=== PATIENT | female | born 1960 | race Caucasian/White ===

== ENCOUNTER 2019-07-16 12:18 | Emergency (ER) | payer MEDICAID, SELFPAY ==
[2019-07-16 12:20] VITALS: BP 116/91; PULSE 87; RESP 16; TEMP 36.6; O2SAT 98; BMI 23.1
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
[2019-07-16 12:44] LABS: Absolute Lymphocyte Count 2.24 X10^3/uL (0.83-4.51); Absolute Neutrophil Count 7.1 X10^3/uL (2.0-7.7); Basophil# 0.06 X10^3/uL; Basophil% 0.6 % (0-1); Eosinophil# 0.04 X10^3/uL; Eosinophils% 0.4 % (0-5); Hematocrit 38.7 % (37-47); Hemoglobin 13.1 g/dL (12.0-15.0); Lymphocyte # 2.24 X10^3/ul (4.0); Lymphocyte % 22.5 % (19-41); Mean Corp Hgb Conc 33.9 g/dL (32-36); Mean Corpuscular Hgb 30.1 pg (27.0-32.0); Mean Platelet Vol. 9.9 fl (6.2-12.0); Monocyte# 0.47 X10^3/uL; Monocyte% 4.7 % (0-10); NRBC Flagged by Analyzer 0 % (0-5); Neutrophil # 7.14 X10^3/uL (2.7-7.7); Neutrophil % 71.6 % (47-70); Platelet Count 378 K/mm3 (150-450); RBC Distribution Width CV 13.4 % (11.6-14.6); RBC Distribution Width SD 43.7 fl (35.1-43.9); Red Blood Count 4.35 M/mm3 (4.2-5.4)
[2019-07-16] MEDS: Midazolam 2 MG/2 ML Syringe IM (12:59)
[2019-07-16] MEDS: Ziprasidone IM 20 MG/ML VIAL IM (12:59)
[2019-07-16 13:05] VITALS: BP 117/81; PULSE 80; RESP 14; O2SAT 99
--- NOTE | 2019-07-16 13:05 | ED.RN ---
PT IS NO LONGER COMBATIVE. PT IS RESTING IN BED WITH EYES CLOSED. RESTRAINTS REMOVED. VITAL SIGNS STABLE.
[2019-07-16 13:10] LABS: Anion Gap 10 (5-15); BUN 10 mg/dL (7-18); BUN/Creat Ratio 13.1 RATIO (10-20); Calcium,Total 9.6 mg/dL (8.5-10.1); Chloride 108 mmol/L (98-107); Creatinine, Serum 0.76 mg/dL (0.55-1.02); EST Glomerular Filtration Rate 82 mL/min (>60); Est Glom Filt Rate - Afr Amer 99 mL/min (>60); Estimated Creatinine Clearance 72.77 ml/min; Glucose 96 mg/dL (74-106); Potassium 4.1 mmol/L (3.5-5.1); Sodium Level 140 mmol/L (136-145)
[2019-07-16 14:44] VITALS: BP 96/58; PULSE 78; RESP 16; O2SAT 98
--- NOTE | 2019-07-16 15:00 | ED.RN ---
PT WAS ASSISTED TO RESTROOM BY THIS RN. PT WAS THEN ASSISTED BACK TO BED AND ASKED FOR FOOD. MEAL TRAY WAS ORDERED AND GIVEN TO PT. PT HAS BEEN CALM AND COOPERATIVE.
[2019-07-16 15:02] LABS: Bacteria 0 SEEN /hpf (None Seen); Mucous, Urine 0 SEEN /hpf (<or=2+); Red Blood Cells-Urine 0 SEEN /hpf (0-5); White Blood Cells 0 SEEN /hpf (0-5)
[2019-07-16 15:21] LABS: Color, Urine Yellow (Yellow); Glucose, Dipstick Normal (Normal); Nitrite-Dipstick Negative (Negative); Occult Blood-Urine Negative /ul (Negative); Urine Bilirubin Dipstick Negative (Negative); Urine Clarity Clear (Clear); Urine Urobilinogen Normal (Normal)
[2019-07-16 15:25] LABS: Ketone-Dipstick 15 mg/dl (Negative); Leukocyte Esterase-Dipstick Negative /ul (Negative); Protein-Dipstick Negative (Negative)
[2019-07-16 15:29] LABS: Amphetamine Urine VISTA NEGATIVE (<1000 ng/mL); Barbiturate Urine VISTA NEGATIVE (< 200 ng/mL); Benzodiazepine Urine VISTA POSITIVE (< 200 ng/mL); Cocaine Urine VISTA NEGATIVE (< 300 ng/mL); Ecstacy Urine VISTA NEGATIVE (< 500 ng/mL); Methadone Urine VISTA NEGATIVE (< 300 ng/mL); PCP Urine VISTA NEGATIVE (< 25 ng/mL); THC Urine VISTA NEGATIVE (< 50 ng/mL); Vista UDS pH Range 7
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
[2019-07-16 15:54] LABS: Squamous Epithelial Cells - UA 0-5 SEEN /hpf (5-10)
[2019-07-16 17:32] VITALS: BP 93/62; PULSE 78; RESP 18; O2SAT 97
--- NOTE | 2019-07-16 19:40 | CM.ED ---
Social Work Telephone call from [facility], patient accepted. Accepting information provided to nursing staff and medical team. [place] [facility] faxed. Updated patient on plan. PLAN: Discharge to [facility]. Nelson RUSH, LEE
--- NOTE | 2019-07-16 19:50 | CM.ED ---
Social Work Telephone call to Don, patient legal guardian to communicate patient discharge dispo, Kings agreeable to plan. Nelson Onofre DRYCLEANER, ORNAMENTAL IRONWORKING SUPERVISOR
[2019-07-16 20:11] VITALS: BP 111/78; PULSE 89; RESP 17; TEMP 36.4; O2SAT 94
[2019-07-16 20:13] VITALS: BP 111/78; PULSE 89; RESP 17; TEMP 36.4; O2SAT 94
--- NOTE | 2019-07-17 10:07 | CM.ED ---
Social Work Telephone call to Timmy Kramer, communicated patient discharge dispo. Nelson Onofre MANAGER CLEANING, LEE
== END 2019-07-16 20:14 ==
PROVIDERS: Emergency Provider Emergency Medicine; Family Provider Nurse Practitioner Adult Health; PCP Nurse Practitioner Adult Health
DX: F20.0 Paranoid schizophrenia (principal)
CPT/HCPCS: 80048; 80307; 80320; 81001; 85025; 96372; 99285; G0480; J3486

== ENCOUNTER 2019-08-13 11:43 | Emergency (ER) | payer MEDICAID, SELFPAY ==
[2019-08-13] VITALS (7 sets, daily range): BP systolic 106–149; BP diastolic 61–83; PULSE 94–96; RESP 16–18; TEMP 35.5; O2SAT 97–98; BMI 26.6
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
--- NOTE | 2019-08-13 12:55 | EKG12_ITS ---
Test Reason : MENTAL HEALTH Blood Pressure : / mmHG Vent. Rate : 090 BPM Atrial Rate : 090 BPM P-R Int : 150 ms QRS Dur : 094 ms QT Int : 380 ms P-R-T Axes : 059 022 041 degrees QTc Int : 464 ms Normal sinus rhythm Incomplete right bundle branch block Borderline ECG Confirmed by AIDE CULVER, MAYUR ([id number]), features editor SATHYA RAIN ([id number]) on 08/15/2019 1:36:04 PM Referred By: ALEX Confirmed By:MAYUR NOBLE MD
--- NOTE | 2019-08-13 13:00 | RAD_ITS ---
STUDY: X-RAY CHEST REASON FOR EXAM: Female, 59 years old. Hallucinations TECHNIQUE: Single AP portable view of the chest. COMPARISON: None. FINDINGS: There is hyperinflation of the lungs consistent with chronic obstructive lung disease (COPD). Lungs are clear. There is no demonstrated pleural abnormality. Normal size heart. Normal mediastinum and edward. Normal visualized pulmonary arteries. Normal visualized aortic arch and descending thoracic aorta. Normal visualized thoracic spine. Normal visualized ribs, clavicles, and shoulders. There is no demonstrated abnormality of the visualized soft tissue structures of the upper abdomen. RAD/Chest 1 View (Portable) IMPRESSION: No acute cardiopulmonary disease Electronically Signed: Estuardo Jefferson DO at 13:30 EDT Tel , Service support ,
[2019-08-13 13:17] LABS: Amphetamine Urine VISTA NEGATIVE (<1000 ng/mL); Barbiturate Urine VISTA NEGATIVE (< 200 ng/mL); Benzodiazepine Urine VISTA NEGATIVE (< 200 ng/mL); Cocaine Urine VISTA NEGATIVE (< 300 ng/mL); Ecstacy Urine VISTA NEGATIVE (< 500 ng/mL); Methadone Urine VISTA NEGATIVE (< 300 ng/mL); PCP Urine VISTA NEGATIVE (< 25 ng/mL); THC Urine VISTA NEGATIVE (< 50 ng/mL); Vista UDS pH Range 6
[2019-08-13 13:23] LABS: Mucous, Urine 0 SEEN /hpf (<or=2+); Red Blood Cells-Urine 0 SEEN /hpf (0-5)
[2019-08-13 13:25] LABS: Color, Urine Yellow (Yellow); Glucose, Dipstick Normal (Normal); Ketone-Dipstick Negative (Negative); Leukocyte Esterase-Dipstick 25 /ul (Negative); Nitrite-Dipstick Negative (Negative); Occult Blood-Urine Negative /ul (Negative); Protein-Dipstick Negative (Negative); Specific Gravity, Urine 1.015 (1.002-1.030); Urine Bilirubin Dipstick Negative (Negative); Urine Clarity Clear (Clear); Urine Urobilinogen Normal (Normal)
[2019-08-13 13:26] LABS: Absolute Lymphocyte Count 1.85 X10^3/uL (0.83-4.51); Absolute Neutrophil Count 4.5 X10^3/uL (2.0-7.7); Basophil# 0.05 X10^3/uL; Basophil% 0.7 % (0-1); Eosinophil# 0.08 X10^3/uL; Eosinophils% 1.1 % (0-5); Hematocrit 32.9 % (37-47); Hemoglobin 11.1 g/dL (12.0-15.0); Lymphocyte # 1.85 X10^3/ul (4.0); Lymphocyte % 26.4 % (19-41); Mean Corp Hgb Conc 33.7 g/dL (32-36); Mean Corpuscular Hgb 30.7 pg (27.0-32.0); Mean Corpuscular Volume 90.9 fL (81-99); Mean Platelet Vol. 8.6 fl (6.2-12.0); Monocyte# 0.48 X10^3/uL; Monocyte% 6.8 % (0-10); NRBC Flagged by Analyzer 0 % (0-5); Neutrophil # 4.53 X10^3/uL (2.7-7.7); Neutrophil % 64.7 % (47-70); Platelet Count 362 K/mm3 (150-450); RBC Distribution Width CV 14.6 % (11.6-14.6); RBC Distribution Width SD 48.5 fl (35.1-43.9); Red Blood Count 3.62 M/mm3 (4.2-5.4)
[2019-08-13] MEDS: Acetaminophen 500 MG Tablet 1000 MG PO (13:26)
[2019-08-13 13:30] LABS: Squamous Epithelial Cells - UA 5-10 SEEN /hpf (5-10); White Blood Cells 0-5 SEEN /hpf (0-5)
[2019-08-13 13:31] LABS: Bacteria RARE /hpf (None Seen)
[2019-08-13 13:38] LABS: Internal QC Validated? YES +Cl - CLEAR BKGD; Pregnancy, Serum, hCG Quali. NEGATIVE Negative
[2019-08-13 13:51] LABS: AST(SGOT) 25 U/L (15-37); Alanine Aminotransfer ALT/SGPT 44 U/L (13-56); Albumin, Serum 3.9 g/dL (3.2-5.0); Alkaline Phosphatase 100 U/L (45-117); Anion Gap 8 (5-15); BUN 17 mg/dL (7-18); BUN/Creat Ratio 21.2 RATIO (10-20); Calcium,Total 9.3 mg/dL (8.5-10.1); Chloride 101 mmol/L (98-107); EST Glomerular Filtration Rate 77 mL/min (>60); Est Glom Filt Rate - Afr Amer 94 mL/min (>60); Estimated Creatinine Clearance 66.45 ml/min; Glucose 106 mg/dL (74-106); Protein, Total 7.9 g/dL (6.4-8.2); Sodium Level 134 mmol/L (136-145); Thyroid Stim Hormone (TSH) 8.28 uIU/mL (0.358-3.74)
[2019-08-13 14:01] LABS: Alcohol, Blood (Medical)-Serum < 3.0 mg/dL
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
--- NOTE | 2019-08-13 17:10 | ED.RN ---
NURSE TO NURSE REPORT CALLED TO [facility] TO [facility] IN PT INTAKE DEPARTMENT. INFORMED THAT ETA FOR TRANSPORT IS 1800.
--- NOTE | 2019-08-13 17:58 | ED.RN ---
PT INCONTINENT OF URINE. LINENS, GOWN CHANGED, PT CLEANED WITH BATH WIPES AND DEPEND PUT ON PT. DINNER TRAY ORDERED FOR PT, PT AWAITING TRANSPORT TO [facility].
== END 2019-08-13 18:25 ==
PROVIDERS: Emergency Provider Emergency Medicine; Family Provider Nurse Practitioner Adult Health; PCP Nurse Practitioner Adult Health
DX: F20.0 Paranoid schizophrenia (principal); R94.6 Abnormal results of thyroid function studies; I10 Essential (primary) hypertension; E78.00 Pure hypercholesterolemia, unspecified; E03.9 Hypothyroidism, unspecified; Z79.899 Other long term (current) drug therapy; Z72.0 Tobacco use
CPT/HCPCS: 71045; 80053; 80307; 80320; 81001; 84443; 84703; 85025; 93005; 99285; G0480; J3486

== ENCOUNTER 2019-08-26 18:44 | Emergency (ER) | payer MEDICAID, SELFPAY ==
[2019-08-13 11:44] VITALS: BMI 26.6
[2019-08-26] VITALS (7 sets, daily range): BP systolic 118–143; BP diastolic 84–99; PULSE 86–97; RESP 16–19; TEMP 36.1; O2SAT 96–100; BMI 23.8
--- NOTE | 2019-08-26 18:51 | EKG12_ITS ---
Test Reason : Blood Pressure : / mmHG Vent. Rate : 107 BPM Atrial Rate : 107 BPM P-R Int : 134 ms QRS Dur : 082 ms QT Int : 346 ms P-R-T Axes : 049 007 046 degrees QTc Int : 461 ms Sinus tachycardia Otherwise normal ECG Confirmed by CELIO CULVER, IWONA ([id number]), writer editor JORGE STARK ([id number]) on 08/31/2019 10:22:20 AM Referred By: GRAY Confirmed By:IWONA PICKENS MD
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
[2019-08-26 19:41] LABS: Absolute Neutrophil Count 4.2 X10^3/uL (2.0-7.7); Basophil# 0.04 X10^3/uL; Basophil% 0.6 % (0-1); Eosinophil# 0.04 X10^3/uL; Eosinophils% 0.6 % (0-5); Hematocrit 35.6 % (37-47); Hemoglobin 11.9 g/dL (12.0-15.0); Lymphocyte % 30.7 % (19-41); Mean Corp Hgb Conc 33.4 g/dL (32-36); Mean Corpuscular Hgb 30.7 pg (27.0-32.0); Mean Platelet Vol. 9.6 fl (6.2-12.0); Monocyte# 0.48 X10^3/uL; Neutrophil # 4.15 X10^3/uL (2.7-7.7); Neutrophil % 60.8 % (47-70); Platelet Count 338 K/mm3 (150-450); RBC Distribution Width CV 14.6 % (11.6-14.6); RBC Distribution Width SD 49.5 fl (35.1-43.9); Red Blood Count 3.87 M/mm3 (4.2-5.4); White Blood Count 6.8 K/mm3 (4.4-11.0)
[2019-08-26 19:42] LABS: NRBC Flagged by Analyzer 0 % (0-5)
[2019-08-26 19:46] LABS: Internal QC Validated? YES +Cl - CLEAR BKGD
[2019-08-26 19:51] LABS: Pregnancy, Serum, hCG Quali. NEGATIVE Negative
[2019-08-26 19:55] LABS: Anion Gap 8 (5-15); BUN 15 mg/dL (7-18); Calcium,Total 9.2 mg/dL (8.5-10.1); Chloride 106 mmol/L (98-107); Creatinine, Serum 0.79 mg/dL (0.55-1.02); EST Glomerular Filtration Rate 79 mL/min (>60); Est Glom Filt Rate - Afr Amer 95 mL/min (>60); Estimated Creatinine Clearance 67.29 ml/min; Glucose 112 mg/dL (74-106); Potassium 3.9 mmol/L (3.5-5.1); Sodium Level 140 mmol/L (136-145)
--- NOTE | 2019-08-26 21:50 | ED.RN ---
PT BROTHER CALLED, HE SPOKE WITH THE PT PSYCHIATRIST. THEY ARE REQUESTING SHE GO TO [facility]. [facility]RENT[facility] A BED. THIS NURSE INFORMED THE BROTHER WE WILL NOTIFY THE [facility] OF THE SAME WHEN THEY SEE THE PATIENT
--- NOTE | 2019-08-26 22:30 | ED.RN ---
DILMA MCCALLUM NURSE CALLED TO CHECK STATUS OF THIS PT, ADVISED THEM THAT THIS PT IS WAITING TO BE SEEN BY [facility]
[2019-08-26 22:36] LABS: Color, Urine Yellow (Yellow); Glucose, Dipstick Normal (Normal); Ketone-Dipstick 5 mg/dl (Negative); Leukocyte Esterase-Dipstick 25 /ul (Negative); Nitrite-Dipstick Negative (Negative); Occult Blood-Urine 25 /ul (Negative); Protein-Dipstick Negative (Negative); Specific Gravity, Urine 1.015 (1.002-1.030); Urine Bilirubin Dipstick Negative (Negative); Urine Clarity Sl. Cloudy (Clear); Urine Urobilinogen Normal (Normal); Urine pH 6.5 (5.0 - 8.0)
[2019-08-26 22:38] LABS: Mucous, Urine RARE /hpf (<or=2+); Red Blood Cells-Urine 0-5 SEEN /hpf (0-5); Squamous Epithelial Cells - UA 5-10 SEEN /hpf (5-10); White Blood Cells 0-5 SEEN /hpf (0-5)
[2019-08-26 22:39] LABS: Amphetamine Urine VISTA NEGATIVE (<1000 ng/mL); Bacteria RARE /hpf (None Seen); Barbiturate Urine VISTA NEGATIVE (< 200 ng/mL); Benzodiazepine Urine VISTA NEGATIVE (< 200 ng/mL); Cocaine Urine VISTA NEGATIVE (< 300 ng/mL); Ecstacy Urine VISTA NEGATIVE (< 500 ng/mL); Methadone Urine VISTA NEGATIVE (< 300 ng/mL); PCP Urine VISTA NEGATIVE (< 25 ng/mL); THC Urine VISTA NEGATIVE (< 50 ng/mL); Vista UDS pH Range 6
[2019-08-27] VITALS (8 sets, daily range): BP systolic 107; BP diastolic 62; PULSE 71; RESP 16–18; O2SAT 98
--- NOTE | 2019-08-27 00:23 | ED.RN ---
PATIENT REMOVED DIAPER AND PEED IN BED.
--- NOTE | 2019-08-27 01:34 | ED.RN ---
AMERICA FROM [facility] IS ON HIS WAY TO SEE THIS PT
--- NOTE | 2019-08-27 01:38 | ED.RN ---
[facility] ON SITE
--- NOTE | 2019-08-27 02:09 | ED.RN ---
PER VALERIE FROM [facility], HE IS UNABLE TO EVALUATE THIS PT AT THIS TIME, HE PLANS TO EVALUATE HER IN THE AM WHEN SHE IS MORE ALERT.
--- NOTE | 2019-08-27 06:45 | ED.RN ---
CALLED [facility]; ASKED TO GIVE US A CALL TO GET NUMBER TO FAX PINK SLIP TO ACCEPTING FACILITY
--- NOTE | 2019-08-27 07:22 | ED.RN ---
FAXED PINK SLIP TO [facility]
--- NOTE | 2019-08-27 08:15 | ED.RN ---
CALLED [facility] TO TOUCH BASE AND MAKE SURE THAT THEY HAD RECEIVED THE PINK SLIP. SPOKE WITH CHARLIE WHOM STATED THAT THE PINK SLIP WAS NULL AND VOID YESTERDAY AFTER THEY HAD SPOKE WITH PTS GUARDIAN, THAT THE PATIENT HAD BEEN ACCEPTED BY THE FACILITY YESTERDAY. WE NOW NEED TO WAIT ON A CALL FROM THEM BECAUSE SHE IS NOT SURE THAT THEY HAVE THE CORRECT STAFFING AT THIS TIME. SHE WILL CALL BACK WHEN THE PATIENT IS ABLE TO BE TRANSFERED. PT IS ACCEPTED TO FACILITY
[2019-08-27] MEDS: Ziprasidone IM 20 MG/ML VIAL IM (09:00)
== END 2019-08-27 13:02 ==
PROVIDERS: Emergency Provider Emergency Medicine; Family Provider Nurse Practitioner Adult Health; PCP Nurse Practitioner Adult Health
DX: R45.851 Suicidal ideations (principal); F25.9 Schizoaffective disorder, unspecified
CPT/HCPCS: 80048; 80307; 80320; 81001; 84703; 85025; 93005; 96372; 99285; J7030; G0480; J3486

== ENCOUNTER 2024-11-14 09:16 | Emergency (ER) | payer MEDICARE, MEDICAID, SELFPAY ==
[2024-11-14 09:17] VITALS: BP 134/89; PULSE 100; RESP 20; TEMP 36.4; O2SAT 96; BMI 24.1
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
[2024-11-14 10:03] LABS: Absolute Lymphocyte Count 1.16 X10^3/uL (0.83-4.51); Absolute Neutrophil Count 4.1 X10^3/uL (2.0-7.7); Basophil# 0.04 X10^3/uL; Basophil% 0.7 % (0-1); Eosinophil# 0.02 X10^3/uL; Eosinophils% 0.4 % (0-5); Hematocrit 39.5 % (37-47); Hemoglobin 13.4 g/dL (12.0-15.0); Lymphocyte # 1.16 X10^3/ul (0.83-4.51); Lymphocyte % 20.4 % (19-41); Mean Corp Hgb Conc 33.9 g/dL (32-36); Mean Corpuscular Hgb 29.8 pg (27.0-32.0); Mean Corpuscular Volume 87.8 fL (81-99); Mean Platelet Vol. 9.1 fl (6.2-12.0); Monocyte# 0.31 X10^3/uL; Monocyte% 5.4 % (0-10); NRBC Flagged by Analyzer 0 % (0-5); Neutrophil # 4.14 X10^3/uL (2.7-7.7); Neutrophil % 72.7 % (47-70); POSITIVE COUNT YES; RBC Distribution Width CV 13.7 % (11.6-14.6); White Blood Count 5.7 K/mm3 (4.4-11.0)
[2024-11-14] MEDS: Ziprasidone IM 20 MG/ML VIAL IM (10:10)
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
[2024-11-14 10:16] VITALS: BP 143/91; PULSE 88; RESP 17; O2SAT 95
[2024-11-14 10:29] LABS: Anion Gap 4 (5-15); BUN 16 mg/dL (7-18); BUN/Creat Ratio 22.6 RATIO (10-20); Calcium,Total 9.3 mg/dL (8.5-10.1); Chloride 111 mmol/L (98-107); Creatinine, Serum 0.71 mg/dL (0.55-1.02); EST Glomerular Filtration Rate 88 mL/min (>60); Est Glom Filt Rate - Afr Amer 106 mL/min (>60); Estimated Creatinine Clearance 64.76 ml/min; Glucose 112 mg/dL (74-106); Potassium 3.7 mmol/L (3.5-5.1); Sodium Level 141 mmol/L (136-145)
[2024-11-14 10:30] LABS: Mucous, Urine 0 SEEN /hpf (<or=2+); White Blood Cells 0 SEEN /hpf (0-5)
--- NOTE | 2024-11-14 10:35 | ED.RN ---
Patient slipped out of her wrist restraints. I undid her foot restraints. I explained to her that I would take the restraints off if she was good and didn't try to hit or kick any of the nurses. I asked prior to removal if she agreed to be good and she shook her head yes. I told her that the social media marketer was coming to talk to her and it was the only way she was going to be able to get out of here. She agreed and I told her the social workers name is Connie. Connie is now in the room with the patient.
[2024-11-14 10:37] LABS: Color, Urine Yellow (Yellow); Glucose, Dipstick Normal (Normal); Ketone-Dipstick 50 mg/dl (Negative); Leukocyte Esterase-Dipstick Negative /ul (Negative); Nitrite-Dipstick Negative (Negative); Occult Blood-Urine 10 /ul (Negative); Protein-Dipstick 15 mg/dl (Negative); Specific Gravity, Urine 1.015 (1.002-1.030); Urine Bilirubin Dipstick Negative (Negative); Urine Clarity Sl. Cloudy (Clear); Urine Urobilinogen Normal (Normal)
[2024-11-14 10:44] LABS: Alcohol, Blood (Medical)-Serum < 3.0 mg/dL
[2024-11-14 10:49] LABS: Amorphous Sediment 1+; Bacteria 1+ /hpf (None Seen); Squamous Epithelial Cells - UA 0-5 SEEN /hpf (5-10)
[2024-11-14 10:50] LABS: Red Blood Cells-Urine 0-5 SEEN /hpf (0-5)
[2024-11-14 11:07] LABS: Differential Indicated SCAN CRITERIA MET; Platelet Estimate ADEQUATE (ADEQ)
[2024-11-14 13:37] LABS: Amphetamine Urine VISTA NEGATIVE (<1000 ng/mL); Barbiturate Urine VISTA NEGATIVE (< 200 ng/mL); Benzodiazepine Urine VISTA NEGATIVE (< 200 ng/mL); Cocaine Urine VISTA NEGATIVE (< 300 ng/mL); Ecstacy Urine VISTA NEGATIVE (< 500 ng/mL); Methadone Urine VISTA NEGATIVE (< 300 ng/mL); PCP Urine VISTA NEGATIVE (< 25 ng/mL); THC Urine VISTA NEGATIVE (< 50 ng/mL); Vista UDS pH Range 6
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
--- NOTE | 2024-11-14 14:47 | CM.ED ---
Social Work SW contacted [facility] and confirmed that they had female beds available. Referral sent. Starr from [facility] called back to inquire about patient being in restraints, Strar informed that patient has been restraint free for several hours. [facility] stated they were able to accept patient, she would just need to be out of restraints for [address] aShu is the accepting physician, nurse to nurse number [phone] Options 3. Information given to community marketing coordinator. SW attempted to reach patients responsible green party. Message left for return call. Plan: Inpatient psychiatric admission [facility] Leila Adams, PAINTER APPRENTICE, STORM WINDOW INSTALLER
--- NOTE | 2024-11-14 14:54 | CM.ED ---
Social Work Patients responsible alliance party returned call and notified that patient was accepted at [facility], [facility]. No further questions or concerns. [facility] [place] to inform that patient had been accepted at [facility]. Connie Adams, OLDER WORKER SPECIALIST, TOOTH CUTTER
[2024-11-14 18:31] VITALS: BP 103/77; PULSE 88; RESP 16; TEMP 36.9; O2SAT 100
[2024-11-14 19:00] VITALS: BP 103/77; PULSE 88; RESP 16; O2SAT 100
== END 2024-11-14 21:36 ==
PROVIDERS: Emergency Provider Emergency Medicine; PCP Nurse Practitioner Adult Health; Visit Provider Emergency Medicine
DX: R45.6 Violent behavior (principal); F25.9 Schizoaffective disorder, unspecified; Z91.148 Patient's other noncompliance with medication regimen for other reason; Z79.899 Other long term (current) drug therapy
CPT/HCPCS: 80048; 80307; 81001; 82077; 85025; 96372; 99285; J3486

== ENCOUNTER 2024-11-29 13:34 | Emergency (ER) | payer MEDICARE, MEDICAID, SELFPAY ==
[2024-11-29 13:36] VITALS: BP 147/110; PULSE 89; RESP 16; TEMP 36.6; O2SAT 96; BMI 24.3
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
--- NOTE | 2024-11-29 13:50 | ED.RN ---
belongs - robbins on lanyard, silver cross necklace, leopard coat, purple coat, shoes, pants, shirt, bra, hat, gloves
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
[2024-11-29] MEDS: Ziprasidone IM 20 MG/ML VIAL IM (14:18)
[2024-11-29 14:27] LABS: Color, Urine Yellow (Yellow); Glucose, Dipstick Normal (Normal); Ketone-Dipstick Negative (Negative); Leukocyte Esterase-Dipstick Negative /ul (Negative); Nitrite-Dipstick Negative (Negative); Occult Blood-Urine Negative /ul (Negative); Protein-Dipstick 30 mg/dl (Negative); Specific Gravity, Urine 1.025 (1.002-1.030); Urine Bilirubin Dipstick Negative (Negative); Urine Clarity Clear (Clear); Urine Urobilinogen Normal (Normal)
[2024-11-29 14:28] LABS: Bacteria 0 SEEN /hpf (None Seen); Mucous, Urine 0 SEEN /hpf (<or=2+); Red Blood Cells-Urine 0 SEEN /hpf (0-5); White Blood Cells 0 SEEN /hpf (0-5)
[2024-11-29 14:34] VITALS: BP 134/99; PULSE 82; RESP 20; O2SAT 96
--- NOTE | 2024-11-29 14:34 | ED.RN ---
Left message with legal guardian to call back to ER for consent to treat.
[2024-11-29 14:40] LABS: Squamous Epithelial Cells - UA 0-5 SEEN /hpf (5-10)
[2024-11-29 14:48] LABS: Absolute Lymphocyte Count 2.54 X10^3/uL (0.83-4.51); Absolute Neutrophil Count 2.9 X10^3/uL (2.0-7.7); Basophil# 0.03 X10^3/uL; Basophil% 0.5 % (0-1); Eosinophil# 0.06 X10^3/uL; Hematocrit 36.4 % (37-47); Lymphocyte # 2.54 X10^3/ul (0.83-4.51); Lymphocyte % 42.6 % (19-41); Mean Corpuscular Hgb 29.2 pg (27.0-32.0); Mean Corpuscular Volume 88.6 fL (81-99); Mean Platelet Vol. 10.1 fl (6.2-12.0); Monocyte% 6.7 % (0-10); NRBC Flagged by Analyzer 0 % (0-5); Neutrophil # 2.92 X10^3/uL (2.7-7.7); Platelet Count 361 K/mm3 (150-450); RBC Distribution Width CV 13.6 % (11.6-14.6); RBC Distribution Width SD 44.2 fl (35.1-43.9); Red Blood Count 4.11 M/mm3 (4.2-5.4)
[2024-11-29 15:00] VITALS: BP 130/89; PULSE 82; RESP 16; O2SAT 96
[2024-11-29 15:04] LABS: Anion Gap 6 (5-15); BUN 19 mg/dL (7-18); BUN/Creat Ratio 27.3 RATIO (10-20); Calcium,Total 9.6 mg/dL (8.5-10.1); Chloride 105 mmol/L (98-107); EST Glomerular Filtration Rate 90 mL/min (>60); Est Glom Filt Rate - Afr Amer 108 mL/min (>60); Estimated Creatinine Clearance 64.76 ml/min; Glucose 88 mg/dL (74-106); Potassium 3.6 mmol/L (3.5-5.1); Sodium Level 139 mmol/L (136-145)
[2024-11-29 15:16] VITALS: BP 130/89; PULSE 82; RESP 16; O2SAT 96
--- NOTE | 2024-11-29 15:30 | RAD_ITS ---
INDICATION: pain EXAMINATION/TECHNIQUE: X-RAY - XR Pelvis 1 or 2 Views COMPARISON: None. FINDINGS: PELVIC BONES: Healing fractures of the right superior and inferior pubic rami. Note that overlapping bowel shadows may however obscure fine detail. Sacroiliac joints are unremarkable. No widening of the pubic symphysis. HIPS: Right hip prosthesis in place. No displaced fracture seen in this frontal view. SOFT TISSUES: No soft tissue swelling or gas. RAD/Pelvis 1 or 2 Views IMPRESSION: Healing fractures right superior and inferior pubic rami. Electronically Signed: Braulio Cruz MD at 16:00 EST ,
[2024-11-29 15:50] LABS: Amphetamine Urine NEGATIVE (<1000 ng/mL); Barbiturate Urine VISTA NEGATIVE (< 200 ng/mL); Benzodiazepine Urine VISTA NEGATIVE (< 200 ng/mL); Cocaine Urine VISTA NEGATIVE (< 300 ng/mL); Ecstacy Urine VISTA NEGATIVE (< 500 ng/mL); Methadone Urine VISTA NEGATIVE (< 300 ng/mL); PCP Urine VISTA NEGATIVE (< 25 ng/mL); THC Urine VISTA NEGATIVE (< 50 ng/mL); Vista UDS pH Range 5
[2024-11-29] MEDS: Lorazepam 2 MG/ML WCH Syringe IM (16:18)
[2024-11-29] MEDS: DiphenhydrAMINE 50 MG/ML Syringe IM (16:18)
[2024-11-29 18:05] VITALS: PULSE 82; RESP 14; O2SAT 96
[2024-11-29 19:28] VITALS: BP 100/62; PULSE 74; RESP 16; TEMP 36.6; O2SAT 98
--- NOTE | 2024-11-29 20:15 | ED.RN ---
Attempted to call [facility] for report, unable to reach at this time.
--- NOTE | 2024-11-29 20:23 | CM.ED ---
Social work Reason for referral: mental health Referral source: Vesta RN About 1315, this SW was advised about patient's pending arrival to [facility] ED after Vesta RN received a call from patient's placement, [facility]. Patient reportedly was being sent to [facility] ED with a pink slip and paperwork had reportedly been sent to [facility] already. This SW called [facility] ([phone]) and left a secure voicemail, requesting a return call, from Sherrell in [employer] at 1320. At 1345, this SW recalled [facility] and left a secure voicemail, requesting a return call from Payton, the local [place] truck driver. At 1415, this SW called [facility] again and spoke with Tracy at [facility] [employer] [facility]. Tracy stated patient had been placed at [facility] from 11/14/24 until 11/27/24 when patient returned to [facility] in a private Uber. Tracy stated patient was manic upon return and patient's packet of psychiatric information had already been sent to [facility]. Tracy was unsure if patient already had a mental health assessment done, but Tracy did fax patient's packet to this SW (printed and placed on patient's chart). At 1425, this SW called [facility] ( ) and spoke with Jaison who shared that [facility] was unable to accept patient due to patient not having psychiatric days available. Jaison was unable to share additional information due to stating [facility] discards referral information after denials. This SW called [facility] back at 1545 and spoke to Verna at the [facility] [employer] [facility]. This SW expressed [facility] was unable to accept due to lack of bed days and Verna stated the local [place] truck driver, Payton, would have to handle this situation. This SW was transferred to Payton's secure voicemail and left a voicemail requesting a return call. After assessing patient, this SW called patient's brother and legal guardian, Kings ([phone]). This SW introduced self and role at [facility], asking if Don knew of patient's presentation to the ED. Kings stated not talking to patient lately due to patient not being conducive to visits. Patient reportedly has psychotic breaks that result in patient cycling for a week or two. Kings stated this has been occurring over the last year or two and Kings reports that patient does not take patient's medications regularly like patient should. Kings stated patient had been successful at [facility] and was there for 6-7 years and patient was also successful at [facility]. Kings reported never talking to a doctor at [facility] in the 3 months patient has been placed there. Kings was driving and would not be home until later, but stated patient's guardianship paperwork could be retrieved from Wen in Admissions at [facility]. Around 1800, this SW called [facility] and spoke with Janice at [facility]. This SW stated that due to patient not having any SI/HI, not making threats, being redirectable, etc., patient would be returning to [facility] this evening. Janice stated understanding and asked for nurses to let [facility] know of an estimated time of return when calling report. Nursing and Dr. Ferraro updated. Returned call to patient's brother, Kings, and updated of patient's return to [facility]. Danyell Stephen, SENIOR STAFF CONSULTANT, MIX CHEMIST
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
== END 2024-11-29 20:09 | disposition skilled nursing facility (03) ==
PROVIDERS: Emergency Provider Emergency Medicine; PCP Nurse Practitioner Adult Health; Referring Provider Emergency Medicine; Visit Provider Emergency Medicine
DX: F20.0 Paranoid schizophrenia (principal); F31.9 Bipolar disorder, unspecified; Z79.899 Other long term (current) drug therapy
CPT/HCPCS: 72170; 80048; 80307; 81001; 82077; 85025; 96372; 99285; J3486

== ENCOUNTER 2024-12-15 13:05 | Emergency (ER) | payer MEDICARE, MEDICAID, SELFPAY ==
[2024-12-15 13:07] VITALS: BP 129/86; PULSE 90; RESP 18; TEMP 36.9; O2SAT 96; BMI 23.4
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
[2024-12-15 14:09] LABS: Absolute Lymphocyte Count 2.22 X10^3/uL (0.83-4.51); Absolute Neutrophil Count 4.6 X10^3/uL (2.0-7.7); Basophil# 0.03 X10^3/uL; Basophil% 0.4 % (0-1); Eosinophil# 0.03 X10^3/uL; Eosinophils% 0.4 % (0-5); Hematocrit 36.7 % (37-47); Hemoglobin 12.2 g/dL (12.0-15.0); Lymphocyte # 2.22 X10^3/ul (0.83-4.51); Lymphocyte % 30.5 % (19-41); Mean Corp Hgb Conc 33.2 g/dL (32-36); Mean Corpuscular Hgb 29.4 pg (27.0-32.0); Mean Corpuscular Volume 88.4 fL (81-99); Mean Platelet Vol. 9.6 fl (6.2-12.0); Monocyte# 0.42 X10^3/uL; Monocyte% 5.8 % (0-10); NRBC Flagged by Analyzer 0 % (0-5); Neutrophil # 4.55 X10^3/uL (2.7-7.7); Neutrophil % 62.6 % (47-70); Platelet Count 351 K/mm3 (150-450); RBC Distribution Width CV 14.1 % (11.6-14.6); RBC Distribution Width SD 45.4 fl (35.1-43.9); Red Blood Count 4.15 M/mm3 (4.2-5.4); White Blood Count 7.3 K/mm3 (4.4-11.0)
[2024-12-15] MEDS: Ziprasidone IM 20 MG/ML VIAL IM (14:13)
[2024-12-15 14:19] LABS: Anion Gap 11 (5-15); BUN 12 mg/dL (7-18); BUN/Creat Ratio 14.6 RATIO (10-20); Calcium,Total 9.7 mg/dL (8.5-10.1); Chloride 102 mmol/L (98-107); Creatinine, Serum 0.82 mg/dL (0.55-1.02); EST Glomerular Filtration Rate 74 mL/min (>60); Est Glom Filt Rate - Afr Amer 89 mL/min (>60); Estimated Creatinine Clearance 63.18 ml/min; Glucose 92 mg/dL (74-106); Potassium 3.5 mmol/L (3.5-5.1); Sodium Level 135 mmol/L (136-145)
--- NOTE | 2024-12-15 14:24 | ED.RN ---
PT IN ROOM RIPPING OUT LARGE CHUNKS OF HAIR, PT STATES I HATE MYSELF. PT SCRATCHING AT HER FACE WITH HER NAILS. PT GIVEN GEODON. PT IS RE DIRECTABLE AT THIS TIME
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
[2024-12-15 14:34] LABS: Alcohol, Blood (Medical)-Serum < 3.0 mg/dL
[2024-12-15 14:48] LABS: Bacteria 0 SEEN /hpf (None Seen); Mucous, Urine 0 SEEN /hpf (<or=2+)
[2024-12-15 14:51] LABS: Color, Urine Yellow (Yellow); Glucose, Dipstick Normal (Normal); Ketone-Dipstick Negative (Negative); Leukocyte Esterase-Dipstick Negative /ul (Negative); Nitrite-Dipstick Negative (Negative); Occult Blood-Urine Negative /ul (Negative); Protein-Dipstick Negative (Negative); Urine Bilirubin Dipstick Negative (Negative); Urine Clarity Clear (Clear); Urine Urobilinogen Normal (Normal)
[2024-12-15 14:59] VITALS: BP 119/81; PULSE 90
[2024-12-15 15:05] LABS: Red Blood Cells-Urine 0-5 SEEN /hpf (0-5); Squamous Epithelial Cells - UA 5-10 SEEN /hpf (5-10); Transitional Epithelial - Ur 0-5 SEEN /hpf (0-5); White Blood Cells 0-5 SEEN /hpf (0-5)
[2024-12-15 15:06] LABS: Amphetamine Urine NEGATIVE (<1000 ng/mL); Barbiturate Urine VISTA NEGATIVE (< 200 ng/mL); Benzodiazepine Urine VISTA NEGATIVE (< 200 ng/mL); Cocaine Urine VISTA NEGATIVE (< 300 ng/mL); Ecstacy Urine VISTA NEGATIVE (< 500 ng/mL); Methadone Urine VISTA NEGATIVE (< 300 ng/mL); Opiates Urine NEGATIVE (< 300 ng/mL); PCP Urine NEGATIVE (< 25 ng/mL); THC Urine VISTA NEGATIVE (< 50 ng/mL); Vista UDS pH Range 5
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
[2024-12-15 15:40] VITALS: BP 119/81; PULSE 90; RESP 18; O2SAT 99
--- NOTE | 2024-12-15 15:46 | ED.RN ---
PT TO BE PLACED
--- NOTE | 2024-12-15 16:24 | CM.ED ---
Social Work: Dependency Case Manager made phone contact with patient's brother/guardian, Kings Sharma to make sure he was aware that patient was brought to ED which he stated he was aware. asbestos abatement worker shared with him that it is being recommend that patient is placed at this time which Mr. Sharma was agreeable with. asbestos abatement worker will notify Mr. Sharma of placement details once placement has been successfully secured. Melissa Guan, GREASE MAN, FUNCTIONAL TESTER TYPEWRITERS
[2024-12-15] MEDS: DiphenhydrAMINE 50 MG/ML Syringe 12.5 MG IM (17:25)
[2024-12-15] MEDS: Midazolam 2 MG/2 ML Syringe IM (17:26)
[2024-12-15] MEDS: Haloperidol Lactate 5 MG/ML Vial 2 MG IM (17:26)
[2024-12-15 18:38] VITALS: BP 78/52; PULSE 90; RESP 14; O2SAT 100
--- NOTE | 2024-12-15 18:55 | ED.RN ---
DR. SOMERS AWARE PT HAD A LOW BP. MORE THEN LIKELY RELATED TO MEDICATIONS. PT EASILY AROUSABLE, PT O2 SAT AT 100 %
--- NOTE | 2024-12-15 19:53 | CM.ED ---
Social Work: [facility]: Spoke with Dixie: Beds are all full. [facility]: Spoke with Keila. [facility] available. trailhead maintenance worker will fax over referral packet for review.
[2024-12-15 20:53] VITALS: BP 92/58; PULSE 90; RESP 17; O2SAT 97
--- NOTE | 2024-12-15 21:40 | CM.ED ---
Social Work: central office worker advised by ED nursing that patient was accepted at [facility]. Unsuccessful phone contact with patient's guardian, Don to let him know where patient will be transferred to. No answer. central office worker did not leave a message but instead provided name and number to call for update on transfer. Melissa Guan, MEAT STUFFER, CONTACT LENS MANUFACTURER
[2024-12-15 23:10] VITALS: BP 122/78; PULSE 90; RESP 18; O2SAT 98
[2024-12-15] MEDS: Haloperidol Lactate 10 MG/5 ML UDC 5 MG PO (23:17)
[2024-12-15] MEDS: Atorvastatin Calcium 10 MG Tablet PO (23:18)
[2024-12-15] MEDS: Benztropine 2 MG Tablet 1 MG PO (23:19)
[2024-12-15] MEDS: MELATONIN 3 MG TABLET PO (23:19)
[2024-12-15] MEDS: Senna/Docusate Sodium 1 Tablet 2 TABLET PO (23:20)
[2024-12-15] MEDS: OXcarbazepine 300 MG Tablet PO (23:20)
[2024-12-15] MEDS: hydrOXYzine PAM 25 MG Capsule 50 MG PO (23:21)
[2024-12-15] MEDS: Famotidine 20 MG Tablet PO (23:21)
[2024-12-15] MEDS: Ibuprofen 600 MG Tablet PO (23:22)
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
[2024-12-16 01:06] VITALS: BP 129/79; PULSE 90; RESP 17; TEMP 36.7; O2SAT 99
[2024-12-16] MEDS: LORazepam 2 MG/ML Syringe 1 MG IM (01:12)
== END 2024-12-16 01:54 ==
PROVIDERS: Physician Assistant; Emergency Provider Emergency Medicine; PCP Nurse Practitioner Adult Health; Visit Provider Emergency Medicine
DX: R45.6 Violent behavior (principal); F25.9 Schizoaffective disorder, unspecified; F17.210 Nicotine dependence, cigarettes, uncomplicated; Z79.899 Other long term (current) drug therapy
CPT/HCPCS: 80048; 80307; 81001; 82077; 85025; 96372; 99285; J3486

== ENCOUNTER 2025-07-31 09:25 | Emergency (ER) | payer MEDICAID, MEDICARE, SELFPAY ==
[2025-07-31 09:27] VITALS: BP 113/85; PULSE 89; RESP 16; TEMP 36.7; O2SAT 94; BMI 23.1
--- NOTE | 2025-07-31 09:34 | ED.RN ---
Per ulises lewis, pt. told nursing staff I am going to kill myself, I have a plan. pt. told staff she was planning to escape and make a run for it when the door was open.
--- NOTE | 2025-07-31 09:36 | ED.RN ---
Per nursing staff, pt. is not oriented. Pt. thinks she is a psychiatrist and her name is Linda.
--- NOTE | 2025-07-31 09:44 | EDS_ITS ---
HPI HPI - Psych History of Present Illness Chief Complaint: Mental Health Informant: patient and SNF Onset/Context/Timing Onset: Today Context: Gradual Onset Timing: Continuous Worsened by: - (Nothing) Relieved by: Nothing Associated Symptoms Associated Symptoms - Psych: Positive for Increased activity and Agitated; Negative for Depressed or Suicidal Thoughts Narrative Narrative: Patient presents because she is here to get blood levels drawn. Patient lives in an extended care facility. Staff there is states the patient was becoming agitated. Patient denies any suicidal or homicidal ideations. Patient has a history of paranoid schizophrenia. Patient is currently having some delusions. Patient denies any chest pain or shortness of breath. Patient denies any nausea or vomiting. Patient denies any fevers or chills. Patient denies any other complaints. PFSH [facility] Medical History Muscle weakness Peripheral vascular disease Schizoaffective disorder Home Medications ?Medication ?Instructions ?Recorded ?Last Taken ?Type benztropine 2 mg tablet 1 mg PO BID 07/16/19 Unknown History docusate sodium 100 mg capsule 100 mg PO DAILY PRN con stipation 07/16/19 Unknown History hydroxyzine HCl 25 mg tablet 50 mg PO BID 07/16/19 Unk nown History levothyroxine 75 mcg tablet 50 mcg PO DAILY 07/16/19 U nknown History albuterol sulfate 90 mcg/actuation 2 inh inhalation BI D PRN shortness 11/14/24 Unknown History aerosol inhaler (Ventolin HFA) of breath or wheezing atorvastatin 10 mg tablet 10 mg PO QHS 11/14/24 Unknow n History cyanocobalamin (vitamin B-12) 1,000 mcg PO DAILY 11/14 Unknown History 1,000 mcg capsule famotidine 20 mg tablet 20 mg PO BID 11/14/24 Unknow n History guaifenesin 100 mg/5 mL oral 300 mg PO Q8H PRN cough 0 11/14/24 Unknown History liquid (Chest Congestion Relief) ibuprofen 200 mg capsule 600 mg PO Q6H PRN fever or p ain 11/14/24 Unknown History menthol 10 mg lozenges 10 mg mucous membrane Q4H AL N sore 11/14/24 Unknown History throat oxcarbazepine 300 mg tablet 300 mg PO BID 11/14/24 Unk nown History senna-docusate sodium tablet 2 tab PO QHS 11/14/24 Unk nown History haloperidol lactate 2 mg/mL oral 5 mg PO TID 12/15/24 Unknown History concentrate melatonin 3 mg capsule 3 mg PO QHS 12/15/24 Unknown History multivitamin (Daily Multi-Vitamin 1 tab PO DAILY 12/15 Unknown History tablet) Allergy/AdvReac Type Severity Reaction Status Date / Time divalproex sodium (From Allergy Unknown Verified 12/15/24 13:11 Depakote) lithium Allergy Unknown Verified 12/15/24 13:11 Social History Smoking Status: Current every day smoker tobacco type: cigarettes ROS ROS ED Constitutional Constitutional ED: Denies chills or fever(s) Eyes Eyes: Denies blurry vision or change in vision ENT ENT ED: Denies rhinorrhea or sore throat Cardiovascular Cardiovascular: Denies chest pain or palpitations Respiratory/Chest Respiratory/Chest: Denies cough or dyspnea Gastrointestinal Gastrointestinal: Denies nausea or vomiting Genitourinary Genitourinary ED: Denies dysuria or hematuria Musculoskeletal Musculoskeletal: Denies back pain or neck pain Integumentary Denies abscess or rash Neurologic Neurologic: Denies headache(s) or weakness Psychiatric Psychiatric: Denies suicidal ideation or suicidal thoughts Allergic/Immunologic Allergic/Immunologic ED: Denies mouth swelling or urticaria EXAM Physical Exam Const Vital Signs: 07/31/25 09:27 Temperature 98.1 F Temperature Source Oral Pulse Rate 89 Respiratory Rate 16 Blood Pressure 113/85 H Blood Pressure Mean 94 Pulse Ox 94 Oxygen Delivery Method Room Air Positive well nourished and well developed General Appearance ED: well developed and NAD HEENT Reports moist mucous membranes normocephalic and atraumatic Neck supple and no JVD Resp normal respiratory effort and clear to auscultation bilaterally Cardio Rate: regular rate Rhythm: regular rhythm GI non-tender and non-distended Palpation: soft Neuro oriented x3, CN's II-XII intact bilaterally and no sensory deficits noted Veena Coma Scale: document GCS findings Spontaneous Obeys Commands Oriented 15 Sensorium / Orientation: alert Motor Exam: strength 5/5 throughout Psych mental status grossly normal Appearance: grossly normal Attitude: calm Activity / Motor Behavior: appropriate eye contact Speech: excessive Mood & Affect: anxious and labile affect Thought Process: flight of ideas Thought Content: delusion(s) Insight: limited Judgement: limited MDM MDM MDM Narrative Medical decision making narrative: Medical screening labs will be obtained. CBC will be obtained to assess for leukocytosis and anemia. Basic metabolic profile will be obtained to assess for electrolyte abnormality and renal function. Urine drug screen will be obtained to assess for substance abuse. Serum alcohol level will be obtained to assess for alcohol intoxication. Urinalysis will be obtained to assess for urinary tract infection. Lab Data Lab results narrative: CBC was reviewed and was within normal limits. Basic metabolic profile was reviewed and was essentially within normal limits. Urine drug screen was reviewed and was negative. Serum alcohol level was reviewed and was less than 10.1. Urinalysis was reviewed. Leukocyte esterase was 100 with 1+ bacteria. There are 0-5 white blood cells and 0-5 epithelial cells. Labs: Laboratory Results - last 24 hr 07/31/25 07/31/25 10:20 10:38 WBC 6.9 RBC 4.31 Hgb 13.8 Hct 39.2 MCV 91.0 MCH 32.0 MCHC 35.2 RDW Std Deviation 43.3 RDW Coeff of Jeremy 13.0 Plt Count 376 MPV 8.8 Immature Gran % (Auto) 0.300 Neut % (Auto) 68.1 Lymph % (Auto) 23.7 Owsley % (Auto) 7.0 Eos % (Auto) 0.3 Baso % (Auto) 0.6 Absolute Neuts (auto) 4.7 Absolute Lymphs (auto) 1.63 Nucleated RBC % 0 Sodium 136 Potassium 4.2 Chloride 101 Carbon Dioxide 22.3 Anion Gap 13 BUN 9 Creatinine 0.63 L Estim Creat Clear Calc 63.88 Est GFR (MDRD) Non-Af 97 BUN/Creatinine Ratio 14.1 Glucose 104 H Calcium 9.7 Urine Color Yellow Urine Clarity Sl. Cloudy Urine pH 6.5 Ur Specific [place] 1.010 Urine Protein 30 H Urine Glucose (UA) Normal Urine Ketones Negative Urine Occult Blood Negative Urine Nitrite Negative Urine Bilirubin Negative Urine Urobilinogen Normal Ur Leukocyte Esterase 100 H Urine RBC 0 SEEN Urine WBC 0-5 SEEN Ur Squamous Epith Cells 0-5 SEEN Urine Bacteria 1+ Urine Mucus 0 SEEN Urine Opiates Screen NEGATIVE U Buprenorphine Qual NEGATIVE Ur Oxycodone Screen NEGATIVE Urine Methadone Screen NEGATIVE Urine Fentanyl Screen NEGATIVE Ur Barbiturates Screen NEGATIVE Ur Phencyclidine Scrn NEGATIVE Ur Amphetamines Screen NEGATIVE U Benzodiazepines Scrn NEGATIVE Urine Cocaine Screen NEGATIVE U Cannabinoids Screen NEGATIVE Ethyl Alcohol < 10.1 Management Discussion w/another healthcare provider: ornamental metal worker/Case management Treatment and Re-Evaluation Narrative: Patient denies any suicidal or homicidal ideations. Patient states she is just here to get her blood levels drawn. ornamental metal worker was in to evaluate the patient. She discussed the case with the extended care facility. Extended-care facility reports that the patient has seen a psychiatrist for this and has been pink slipped. Extended-care facility reports that patient has been having escalating behaviors and is more combative. Because of this, patient will be placed in a psychiatric facility. Discharge Plan Triage Chief Complaint: Mental Health ED Provider: Kalpesh Malik Dx/Rx/DC Orders Clinical Impression: Paranoid schizophrenia, Elevated blood pressure reading Instructions: ED Schizophrenia, General Prescriptions: No Action levothyroxine 75 MCG tablet 50 mcg PO DAILY benztropine 2 MG tablet 1 mg PO BID docusate sodium 100 MG capsule 100 mg PO DAILY PRN (Reason: constipation) hydroxyzine HCl 25 MG tablet 50 mg PO BID cyanocobalamin (vitamin B-12) 1,000 mcg capsule 1,000 mcg PO DAILY famotidine 20 mg tablet 20 mg PO BID guaifenesin [Chest Congestion Relief] 100 mg/5 mL liquid 300 mg PO Q8H PRN ibuprofen 200 mg capsule 600 mg PO Q6H PRN (Reason: fever or pain) atorvastatin 10 mg tablet 10 mg PO QHS oxcarbazepine 300 mg tablet 300 mg PO BID senna-docusate sodium Tablet 2 tab PO QHS menthol 10 mg lozenge 10 mg mucous membrane Q4H PRN (Reason: sore throat) albuterol sulfate [Ventolin HFA] 90 mcg/actuation HFA aerosol inhaler 2 inh inhalation BID PRN (Reason: shortness of breath or wheezing) haloperidol lactate 2 mg/mL concentrate 5 mg PO TID melatonin 3 mg capsule 3 mg PO QHS multivitamin [Daily Multi-Vitamin] Tablet 1 tab PO DAILY Primary Care Provider: Coleen Lundberg ACTIVITY THERAPY SPECIALIST Referrals: Coleen Lundberg ACTIVITY THERAPY SPECIALIST, ACTIVITY THERAPY SPECIALIST-C [Primary Care Provider, Medical] - 3-5 Days Print Language: Nepalese Disposition Disposition: Psychiatric Hospital or Unit
--- NOTE | 2025-07-31 10:24 | ED.RN ---
Dr. Malik said no sitter is needed
[2025-07-31 10:31] LABS: Hematocrit 39.2 % (37-47); Hemoglobin 13.8 g/dL (12.0-15.0); Immature Granulocytes Count 0.020 X10^3/uL (0.0-0.0); Mean Corp Hgb Conc 35.2 g/dL (32-36); Mean Corpuscular Volume 91.0 fL (81-99); Mean Platelet Vol. 8.8 fl (6.2-12.0); NRBC Flagged by Analyzer 0 % (0-5); Platelet Count 376 K/mm3 (150-450); RBC Distribution Width CV 13.0 % (11.6-14.6); RBC Distribution Width SD 43.3 fl (35.1-43.9); Red Blood Count 4.31 M/mm3 (4.2-5.4); White Blood Count 6.9 K/mm3 (4.4-11.0)
[2025-07-31 10:52] LABS: Mucous, Urine 0 SEEN /hpf (<or=2+); Red Blood Cells-Urine 0 SEEN /hpf (0-5)
[2025-07-31 11:02] LABS: Alcohol, Blood (Medical)-Serum < 10.1 mg/dL (<=10.0)
[2025-07-31 11:04] LABS: Anion Gap 13 (5-15); BUN 9 mg/dL (4-19); BUN/Creat Ratio 14.1 RATIO (10-20); Calcium,Total 9.7 mg/dL (7.6-11.0); Carbon Dioxide 22.3 mmol/L (21.0-32.0); Chloride 101 mmol/L (98-108); Estimated Creatinine Clearance 63.88 ml/min (50-250); Glucose 104 mg/dL (70-99); Potassium 4.2 mmol/L (3.3-5.1)
[2025-07-31 11:04] LABS: Barbiturate Urine NEGATIVE (< 200 ng/mL); Benzodiazepine Urine NEGATIVE (< 200 ng/mL); PCP Urine NEGATIVE (< 25 ng/mL); THC Urine NEGATIVE (< 50 ng/mL)
[2025-07-31 11:06] LABS: Color, Urine Yellow (Yellow); Glucose, Dipstick Normal (Normal); Ketone-Dipstick Negative (Negative); Leukocyte Esterase-Dipstick 100 /ul (Negative); Nitrite-Dipstick Negative (Negative); Occult Blood-Urine Negative /ul (Negative); Protein-Dipstick 30 mg/dl (Negative); Specific Gravity, Urine 1.010 (1.002-1.030); Urine Bilirubin Dipstick Negative (Negative)
[2025-07-31 11:20] LABS: Squamous Epithelial Cells - UA 0-5 SEEN /hpf (5-10)
--- NOTE | 2025-07-31 11:30 | ED.RN ---
Nurse called this RN after she approved her being discharged and stated well you know she is pink slipped, right?'. This RN forwarded call to richard VALENCIA to discuss.
--- NOTE | 2025-07-31 13:00 | CM.ED ---
Social Work Psychiatric Assessment Reason for consult:Mental Health Informant(s): ?Staff at [facility], Medical record Chief Complaint: ?Patient was sent to ED from [facility] on a pink slip. Psychiatrist at [facility] stated that patient ? has verbalized active suicidal intent with plan and stated means? is demonstrating increased psychotic symptoms with persecutory delusions..is overtly agitated and her behavior has destabilized?? Staff elaborate that patient has been voicing suicidal ideation with intent to hang or cut self.? Staff also report that patient has become paranoid, thinking people are poisoning her and trying to kill her, patient has stated she will escape to avoid harm.? Patient is experiencing visual hallucinations, believes there was a man hanging in her room.? 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 ?Staff report that patient is not sleeping, that she is pacing the halls during the night. Patient has also had a change in appetite and is refusing many medications.? Patient refused to participate in assessment.?? Patient has pressured, rapid speech.? Staff report that at baseline, patient is cooperative and communicative.?? Marital/Social History: ? Living Situation: ?currently lives at [facility] Support/Resources: ?[facility] staff, brother Kings History: None Education and Employment History: ?unknown Mental Health Treatment/History: ?Patient sees a psychiatrist and a counselor through [facility] routinely.?? Had had previous psychiatric hospitalizations Triggers/Stressors to mental health: ?staff at [facility] were unable to identify a trigger Coping Skills: ?none History of Abuse (physical/sexual/verbal/emotional): ?patient unwilling to answer question Substance Abuse Current/Historical: ?unable to assess Risk to Self/Others: ? Suicidal (thought/plan/intent/attempt): ?patient denies, however staff at [facility] state that patient has been stating she is suicidal and has a plan to hang or cut self? Access to Lethal Means: yes ? Homicidal (thought/plan/intent/attempt): none ? History of Violence (self/others/objects): ?none Mental Status Exam: ??? Orientation: ?patient is alert to self and location.? Memory: ?unknown Appearance/General Behavior: ?clean, agitated, non-directable Mood/Affect: ?angry, elevated, anxious Communication Pattern: ?patient refused to speak to social media developer for assessment other than answer a few question.? Patient then became agitated and told SW to leave room Thought Process: ?paranoid, delusional, visual hallucinations General Intellectual Functioning:?? average Judgment: ?poor Insight: ?poor Plan:? Due to patients suicidal ideations with intent, plan and access to method, patients increase in psychotic symptoms including hallucinations, delusions and paranoia, inpatient psychiatric hospitalization is recommended. Physician consulted and in agreement with same. Connie Adams, PUBLIC UTILITIES SALES REPRESENTATIVE, OPERATIONS LEAD
--- NOTE | 2025-07-31 13:04 | ED.RN ---
Pt. Undressed by Jimenez SMITH.
--- NOTE | 2025-07-31 13:27 | ED.RN ---
pt. has repeatedly called this RN a bitch and told me to get out of room. When this RN leaves room pt. then yells out into hallway asking questions prompting me to go back into room. Pt. very frustrated that she cannot have her bra and underwear.
[2025-07-31 14:46] VITALS: BP 113/92; PULSE 101; RESP 16; O2SAT 100
--- NOTE | 2025-07-31 14:59 | CM.ED ---
Social Work SW contacted [facility], and [facility]. None have available beds today. SW contacted [facility], who does have open beds. Referral sent. Intake from [facility] contacted [facility] and asked for copy of the pink slip and guardianship paperwork. Both sent. Plan: Inpatient psychiatric hospitalization pending acceptance. Connie Adams, CABLE PLACER, REPORT MANAGER
--- NOTE | 2025-07-31 16:02 | CM.ED ---
Social Work Patient was accepted at [facility]. [place] slip sent. Accepting physician is Dr. Diamond. Patient will be going to the [facility], [id number] [phone]. Patients guardian aware of placement. Connie Adams, AGED OR DISABLED CARER, CLOCK REPAIRER
--- NOTE | 2025-07-31 16:07 | PCA ---
CALLED FOR [facility] @ [phone] SAID IT WILL BE 4-5 ASKED THEM TO OUTSOURCED THE TRIP
[2025-07-31 16:38] VITALS: BP 119/79; PULSE 88; RESP 18; O2SAT 95
--- NOTE | 2025-07-31 19:42 | ED.RN ---
Attempted to call [facility] to give report. No answer
[2025-07-31 20:01] VITALS: BP 119/79; PULSE 88; RESP 18; TEMP 36.7; O2SAT 95
== END 2025-07-31 20:10 ==
PROVIDERS: Emergency Provider Emergency Medicine; PCP Hospitalist; Visit Provider Emergency Medicine
DX: F20.0 Paranoid schizophrenia (principal); R03.0 Elevated blood-pressure reading, without diagnosis of hypertension; F17.210 Nicotine dependence, cigarettes, uncomplicated
CPT/HCPCS: 80048; 80307; 81001; 82077; 85025; 99285

== ENCOUNTER 2025-09-05 12:22 | Emergency (ER) | payer MEDICAID, MEDICARE, SELFPAY ==
[2025-09-05 12:23] VITALS: BP 154/117; PULSE 86; RESP 14; TEMP 36.4; O2SAT 97; BMI 24.2
[2025-09-05 12:50] VITALS: BP 132/78; PULSE 70; RESP 14; O2SAT 98
[2025-09-05] MEDS: Ziprasidone IM 20 MG/ML VIAL IM (12:55)
--- NOTE | 2025-09-05 13:14 | ED.RN ---
Pt continues to swear and not be cooperative. Pt repeatedly saying fuck you. I am and I need my . You are a whore. She told the dr and this nurse that you whores suck divine for a living. Pt was medicated. She continues to cover her head and swear. Pt stated Turn the lights off bitch.
[2025-09-05 13:23] VITALS: BP 145/70; PULSE 70; RESP 14; O2SAT 98
[2025-09-05 14:00] VITALS: BP 150/111; PULSE 89; RESP 18; O2SAT 96
[2025-09-05 14:11] LABS: Hematocrit 36.3 % (37-47); Hemoglobin 12.0 g/dL (12.0-15.0); Immature Granulocytes Count 0.020 X10^3/uL (0.0-0.0); Mean Corp Hgb Conc 33.1 g/dL (32-36); Mean Corpuscular Volume 93.6 fL (81-99); Mean Platelet Vol. 9.9 fl (6.2-12.0); NRBC Flagged by Analyzer 0 % (0-5); Platelet Count 340 K/mm3 (150-450); RBC Distribution Width CV 13.4 % (11.6-14.6); RBC Distribution Width SD 45.6 fl (35.1-43.9); Red Blood Count 3.88 M/mm3 (4.2-5.4); White Blood Count 6.5 K/mm3 (4.4-11.0)
--- NOTE | 2025-09-05 14:17 | ED.RN ---
CONSENT FOR TREATMENT OBTAINED AT THIS TIME. LEGAL GUARDIAN REQUESTED TREATMENT AT [facility]. SOCIAL WORK NOTIFIED.
[2025-09-05 14:39] LABS: Alcohol, Blood (Medical)-Serum < 10.1 mg/dL (<=10.0); Anion Gap 10 (5-15); BUN 11 mg/dL (4-19); BUN/Creat Ratio 20.6 RATIO (10-20); Calcium,Total 8.9 mg/dL (7.6-11.0); Carbon Dioxide 22.5 mmol/L (21.0-32.0); Chloride 106 mmol/L (98-108); Estimated Creatinine Clearance 63.88 ml/min (50-250); Glucose 95 mg/dL (70-99); Potassium 4.1 mmol/L (3.3-5.1)
[2025-09-05 14:44] LABS: Barbiturate Urine NEGATIVE (< 200 ng/mL); Benzodiazepine Urine NEGATIVE (< 200 ng/mL); PCP Urine NEGATIVE (< 25 ng/mL); THC Urine NEGATIVE (< 50 ng/mL)
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
[2025-09-05 15:00] VITALS: BP 122/66; PULSE 70; RESP 14; O2SAT 98
--- NOTE | 2025-09-05 15:31 | CM.ED ---
Social work 1440: due to patient's lack of information given during assessment, SW called patient's brother and legal guardian, Kings (ph: [phone]). Don provided collaborative information and expressed desire to have patient placed at [facility] or [facility] in [place] due to those placements being closest to family. Kings stated the last place patient went was difficult to visit and Kings stated frustration with the facility for releasing patient if patient was still as agitated as patient is presenting today. Further information about this phone call in assessment notes. 1500: Called [facility] (ph: [phone]) and no beds available. Called [facility] (ph: ) and beds available. Referral packet faxed at [phone] after full packet received (f: ). Plan: placement, pending acceptance. Danyell Stephen, CLINICAL APPLICATION CONSULTANT, TUMBLERS SUPERVISOR
--- NOTE | 2025-09-05 15:36 | EX.ED.VIS.PS ---
HPI HPI - Psych History of Present Illness Chief Complaint: Mental Health Narrative Narrative: Patient is a 65-year-old female presenting to the emergency department for medication noncompliance and concern for psychosis. Hx of paranoid schizophrenia. Patient lives at an extended care facility [facility]. She reportedly has not been taking her medications at her facility. The facility reports that she has been very combative and had delusions. Patient is unable to provide any history due to behavior/mental status. [facility] Medical History Other symbolic dysfunctions Impulse disorder, unspecified Insomnia, unspecified Unspecified asthma, uncomplicated Vitamin B deficiency, unspecified Gastro-esophageal reflux disease without esophagitis Constipation, unspecified Unspecified convulsions Extrapyramidal and movement disorder, unspecified Hypothyroidism, unspecified Bilateral primary osteoarthritis of hip Muscle weakness Peripheral vascular disease Schizoaffective disorder Home Medications ?Medication ?Instructions ?Recorded ?Last Taken ?Type atorvastatin 10 mg tablet 10 mg PO QHS 11/14/24 Unknown History famotidine 20 mg tablet 20 mg PO BID gerd 11/14/24 Unknown History guaifenesin 100 mg/5 mL oral 200 mg PO Q12H PRN cough 11/14/24 Unknown History liquid (Chest Congestion Relief) menthol 10 mg lozenges 10 mg mucous membrane Q4H PRN cough 11/14/24 Unknown History oxcarbazepine 300 mg tablet 300 mg PO BID for mood 11/14/24 Unknown History senna-docusate sodium tablet 1 tab PO BID constipation 11/14/24 Unknown History haloperidol lactate 2 mg/mL oral 10 mg PO BID schizoaffective 12/15/24 Unknown History concentrate disorder melatonin 3 mg capsule 3 mg PO QHS 12/15/24 Unknown History benztropine 1 mg tablet 1 mg PO QHS movement disorder 09/05/25 Unknown History hydrocortisone 1 % topical cream 1 applic topical DAILY dermatitis 09/05/25 Unknown History (Anti-Itch (hydrocortisone)) hydroxyzine pamoate 50 mg capsule 50 mg PO Q8H PRN severe anxiety 09/05/25 Unknown History ibuprofen 200 mg tablet (IBU-200) 400 mg PO Q4H PRN pain 09/05/25 Unknown History lidocaine 4 % topical patch 1 patch topical DAILY PRN pain 09/05/25 Unknown History (Lidocaine Pain Relief) multivitamin with folic acid 400 1 tab PO DAILY supplement 10/30/25 Unknown History mcg tablet (Tab-A-Vu) propranolol 10 mg tablet 10 mg PO BID anxiety 09/05/25 Unknown History vitamin B complex (Vitamins B 1 cap PO DAILY supplement 09/05/25 Unknown History Complex capsule) zolpidem 10 mg tablet 10 mg PO QHS insomnia 09/05/25 Unknown History Allergy/AdvReac Type Severity Reaction Status Date / Time acetaminophen (From Tylenol) Allergy Intermediate PT UNSURE Verified 09/05/25 12:30 OF REACTION codeine Allergy Intermediate PT UNSURE Verified 09/05/25 12:30 OF REACTION divalproex sodium (From Allergy Unknown Verified 09/05/25 12:30 Depakote) lithium Allergy Unknown Verified 09/05/25 12:30 Social History Smoking Status: Current every day smoker tobacco type: cigarettes ROS ROS ED ROS Narrative see HPI, limited due to patient not participating in exam Review of Systems ROS Unobtainable: due to mental condition EXAM Physical Exam Narrative Exam Narrative: Vital signs: Reviewed General: Alert. Does not participate in exam to evaluate orientation. No acute distress HEENT: Head is normocephalic and atraumatic, sinuses nontender, pupils equal round and reactive. Nares are patent. Oropharynx and throat exams normal. Neck: Supple without lymphadenopathy nontender Cardiovascular: Regular rate and rhythm, no murmurs. No rubs or gallops. Normal S1 and S2 Respiratory: Clear to auscultation bilaterally. No wheezes, rales, rhonchi Abdominal: Soft and nontender. Normal bowel sounds. No guarding or rebound. Nonsurgical abdomen Extremities: No tenderness. No bruising. Normal range of motion. Normal sensation. Skin: No rash or redness. The rest of the physical exam is unremarkable Const Vital Signs: 09/05/25 12:23 09/05/25 12:50 09/05/25 13:23 Temperature 97.6 F L Temperature Source Temporal Pulse Rate 86 70 70 Respiratory Rate 14 14 14 Blood Pressure 154/117 H 132/78 H 145/70 H Blood Pressure Mean 129 96 95 Pulse Ox 97 98 98 Oxygen Delivery Method Room Air Room Air Room Air 09/05/25 14:00 09/05/25 15:00 Temperature Temperature Source Pulse Rate 89 70 Respiratory Rate 18 14 Blood Pressure 150/111 H 122/66 H Blood Pressure Mean 124 84 Pulse Ox 96 98 Oxygen Delivery Method Room Air Room Air MDM MDM MDM Narrative Medical decision making narrative: Patient is a 65-year-old female presenting to the emergency department for medication noncompliance and concern for psychosis at her facility. Patient was seen and examined. Vitals are stable. Patient resting bed comfortably no acute distress. Patient does not participate in exam. Does not answer my questions but is yelling out about being and calling staff member names. She is agitated and aggressive. Yelling profanities at staff members. Patient given 20 mg IM Geodon. Suspect likely medication noncompliance as the cause of her acute change. Medical clearance labs were ordered. They are largely unremarkable. Social work was consulted for evaluation and they recommended admission to a inpatient psychiatric facility. Patient was previously pink slipped by facility prior to her arrival. Clinical impression: Acute exacerbation of paranoid schizophrenia History & Record Review Discussion w/independent historian: EMS personnel Additional record(s) reviewed:: Prior ED visit and Prior labs Lab Data Attestation: I reviewed the patient's lab results. Labs: Laboratory Results - last 24 hr 09/05/25 13:36 WBC 6.5 RBC 3.88 L Hgb 12.0 Hct 36.3 L MCV 93.6 MCH 30.9 MCHC 33.1 RDW Std Deviation 45.6 H RDW Coeff of Jeremy 13.4 Plt Count 340 MPV 9.9 Immature Gran % (Auto) 0.300 Neut % (Auto) 67.5 Lymph % (Auto) 25.7 Morrison % (Auto) 5.4 Eos % (Auto) 0.6 Baso % (Auto) 0.5 Absolute Neuts (auto) 4.4 Absolute Lymphs (auto) 1.67 Nucleated RBC % 0 Sodium 139 Potassium 4.1 Chloride 106 Carbon Dioxide 22.5 Anion Gap 10 BUN 11 Creatinine 0.55 L Estim Creat Clear Calc 63.88 Est GFR (MDRD) Non-Af 100 BUN/Creatinine Ratio 20.6 H Glucose 95 Calcium 8.9 Urine Opiates Screen NEGATIVE U Buprenorphine Qual NEGATIVE Ur Oxycodone Screen NEGATIVE Urine Methadone Screen NEGATIVE Urine Fentanyl Screen NEGATIVE Ur Barbiturates Screen NEGATIVE Ur Phencyclidine Scrn NEGATIVE Ur Amphetamines Screen NEGATIVE U Benzodiazepines Scrn NEGATIVE Urine Cocaine Screen NEGATIVE U Cannabinoids Screen NEGATIVE Ethyl Alcohol < 10.1 Discharge Plan Triage Chief Complaint: Mental Health ED Provider: Shawanda Fischer Dx/Rx/DC Orders Prescriptions: No Action famotidine 20 mg tablet 20 mg PO BID guaifenesin [Chest Congestion Relief] 100 mg/5 mL liquid 200 mg PO Q12H PRN (Reason: cough) atorvastatin 10 mg tablet 10 mg PO QHS oxcarbazepine 300 mg tablet 300 mg PO BID senna-docusate sodium Tablet 1 tab PO BID menthol 10 mg lozenge 10 mg mucous membrane Q4H PRN (Reason: cough) haloperidol lactate 2 mg/mL concentrate 10 mg PO BID melatonin 3 mg capsule 3 mg PO QHS benztropine 1 mg tablet 1 mg PO QHS hydrocortisone [Anti-Itch (HC)] 1 % cream 1 applic topical DAILY Rx Instructions: apply to left knee for atopic dermatitis hydroxyzine pamoate 50 mg capsule 50 mg PO Q8H PRN (Reason: severe anxiety) Rx Instructions: for 14 days starting 08/31/25 to 09/14/2025 ibuprofen [IBU-200] 200 mg tablet 400 mg PO Q4H PRN (Reason: pain) lidocaine [Lidocaine Pain Relief] 4 % adhesive patch,medicated 1 patch topical DAILY PRN (Reason: pain) Rx Instructions: apply to right hip as needed for pain propranolol 10 mg tablet 10 mg PO BID Rx Instructions: hold for bp <100/60 or pulse <60 zolpidem 10 mg tablet 10 mg PO QHS vitamin B complex [Vitamins B Complex] Capsule 1 cap PO DAILY multivitamin with folic acid [Tab-A-Vu] 400 mcg tablet 1 tab PO DAILY Primary Care Provider: Gema Ellison Referrals: Gema Ellison MD [Primary Care Provider, Family Practice] Print Language: Slovak
--- NOTE | 2025-09-05 16:36 | CM.ED ---
Social work -- NO LIFETIME BED DAYS SW received notice of denial from [facility] due to patient not having any lifetime bed days left. SW to try general hospitals with a psychiatric unit at this time. Patient's RN updated of situation. Danyell Stephen, CHANNEL LIP STIFFENER INSOLES, SILK WINDING MACHINE OPERATOR
--- NOTE | 2025-09-05 17:03 | ED.RN ---
Pt continues to call out. When asked what she needs she replies You fucking assholes, its cold in here. I need a blanket and a gown. I took my ambien already and I want to sleep. Pt was not given ambien. Warm blanket was given. Pt then says You are all a bunch of fucking assholes. You dont know what you are doing, I don't need to go to the hospital for anything. You keep waking me up. I dont know why you assholes wont let me sleep.
--- NOTE | 2025-09-05 18:47 | EKG12_ITS ---
Test Reason : MHC
--- NOTE | 2025-09-05 19:10 | CM.ED ---
Social work SW called the following places for placement (all between 1700 and 1800) and they had the following responses: - [facility]: had beds, so referral faxed (f: [phone]). Response received was denial due to not taking [facility]. - [facility]: not able to say if there were available beds over the phone, so referral faxed (f: ). No response received. - [facility]: no beds available. - [facility]: unable to connect with anyone; [phone] office hours reported on automatic message. - [facility]: no beds available, but possibly tomorrow. Packet faxed (f: [phone]). No response received. - [facility]: no beds available. - [facility]: unable to connect with anyone; left VM. - [facility]: beds available, so referral packet faxed (f: [phone]). Response is below. - [facility]: they did not know if beds were available, but were willing to look at referral packet (f: ). They declined patient due to acuity with patient and current unit acuity. - [facility]: number was said to be temporarily unavailable and to call back at a later time. - [facility]: no beds available, but stated to try again tomorrow. - [facility]: unknown on beds, but referral packet faxed (f: [phone]). Call center staff said packet could be reviewed, but for patient to be accepted at [facility], there would need to be a doctor to doctor call done; ED front end web developer number provided. Call center staff also said they had a [facility] facility in [place] that could possibly have beds. No fax number received due to their staff wanting to receive response from [facility] staff first. Patient was ultimately declined at 2044 due to distance. Lana's response came at 1839. They requested an EKG and asked questions regarding patient's ADLs and level of care. SW verified these with RNs and called [facility] back at 1944 as well as faxed the EKG and updated pink slip. In between 1839 and 1944, SW had to call [facility] (ph: [phone]) to get an accurate pink slip with a time noted. Per pink slip notation, attempted to call supervisor floor assembly Ivring Solorio (ph: [phone]) who was able to call back a short time later and provide SW with an accurate pink slip via the DENNIS Flores via email. Plan: inpatient placement, pending acceptance. Will pass off to Crisis if needed at end of shift. Danyell Stephen, ENDOSCOPY TECH, BAKERY MANAGER
[2025-09-05] MEDS: MELATONIN 3 MG TABLET PO (21:49)
--- NOTE | 2025-09-05 21:57 | CM.ED ---
Social work SW called [facility] at 2144 due to not hearing anything since about 1944. Staff there stated running into some issues in their ED that required attention and intent to speak to their psychiatric provider shortly. SW provided Crisis after hours number due to shift ending and [facility] staff stated being able to call Crisis when they had a response about patient. SW called Crisis and spoke with Golden. SW told Golden briefly about all of the above situation and the events of the day. Golden stated understanding and appreciating the list of placements attempted being written down for Crisis. Golden had no further questions at this time. Eliseo from Crisis called [facility] back as well and SW explained the above; Eliseo stated understanding and also stated not having questions. [facility] updated refrigerating engineer head Vangie with handing this situation off to Crisis. [facility] provided handoff via email to Connie MOREIRA. Plan: inpatient mental health treatment, pending acceptance ADRI Landon, OPTICAL GLASS WET INSPECTOR
[2025-09-05 23:00] VITALS: BP 102/58; PULSE 62; RESP 14; O2SAT 99
[2025-09-06 05:21] VITALS: BP 118/76; PULSE 75; RESP 17; O2SAT 97
[2025-09-06] MEDS: BENZOCAINE/MENTHOL 1 LOZENGE MUCOUS MEM (05:50)
--- NOTE | 2025-09-06 06:07 | PCA ---
VICTORINO JUNIOR CALLED AND STATED [facility] HAD NO NEW INFORMATION REGARDING TRANSFER, AND A REFERAL WAS SENT TO [facility].
[2025-09-06] MEDS: Vitamin B Comp W-C Capsule 1 CAP PO (08:17)
[2025-09-06] MEDS: Nicotine (PBKC) 21 MG Patch TD (08:17)
[2025-09-06] MEDS: hydrOXYzine PAM 25 MG Capsule 50 MG PO (08:18)
--- NOTE | 2025-09-06 08:24 | PCA ---
CRISIS CALLED THIS MORNING WITH AN UPDATE FOR PT'S PLACEMENT, PT IS STILL PENDING AT [facility], DECLINED FROM [facility], AND NOW NEWLY REFERRED TO [facility] IN [place].
--- NOTE | 2025-09-06 11:36 | CM.ED ---
Social Work SW spoke with Aye at [facility], referrals are outstanding at [facility], [facility], and [facility]. SW contacted the following facilities: [facility]: No beds [facility]: No beds [facility]: Declined due to insurance. [facility]: Referral sent, intake stated they were unsure if they would be able to take any admissions today due to staffing. [facility]: Unable to get ahold of anyone for intake. [facility]: Declined due to insurance. [facility]: Open beds, referral sent. Plan: Referrals are outstanding facilities. Patient will either discharge to inpatient psych or [facility]. Connie Adams, RETAIL SALES CONSULTANT, SUPPLY CHAIN SPECIALIST
--- NOTE | 2025-09-06 12:39 | CM.ED ---
Social Work Patient was declined by [facility] due to patient living on a secured unit. SW spoke with [facility] bed control @ [phone] who stated they do have open beds, referral sent to [facility] at fax# [phone]. Connie Adams, CHIEF INTERNAL AUDITOR, SPINNER CAP FRAME
[2025-09-06 13:00] VITALS: BP 141/100; PULSE 82; RESP 18; O2SAT 96
[2025-09-06 13:26] VITALS: BP 137/88; PULSE 79
[2025-09-06 14:45] VITALS: BP 137/88; PULSE 79; RESP 18; TEMP 36.4; O2SAT 96
--- NOTE | 2025-09-06 14:49 | CM.ED ---
Social Work Patient has been denied by all facilities attempted by [facility] and Crisis. SW attempted to contact SW, DON or Admissions at [facility] to let them know patient would be discharged back to SNF. No answer at any extension. SW called unit and spoke to patients nurse, nurse notified of patient being out of bed days, the limitations that placed on inpatient options, and that patient has been declined at all hospitals. SW left nurse direct number for a call back should anyone have any questions. SW did receive a call back from unit nurse stating that the Admin wanted to call insurance company before we discharged to see if they could get patient more psych days. [facility] educated nurse that once psych days were used, there was no way to acquire more. SW told nurse that Admin could call SW directly if there were any more questions or concerns. SW attempted to contact patients guardian/brother to give update, no answer so SW left message requesting a call back. Plan: Patient to be discharged to SNF due to denials at inpatient psychiatric facilities. Connie Adams, RADIO ENGINEERING TEACHER, BOARDING SPECIALIST
--- NOTE | 2025-09-06 15:15 | CM.ED ---
Social Work Patients guardian returned phone call, was updated on psychiatric days, facilities that were tried, patient being denied and patient returning to [facility]. Guardian had no questions or concerns. Connie Adams BUSINESS OBJECTS, MORTGAGE LOAN COORDINATOR
--- NOTE | 2025-09-06 15:21 | ED.RN ---
Attempted to call report to ulises lewis. No answer.
== END 2025-09-06 16:17 ==
PROVIDERS: Emergency Provider Student in an Organized Health Care Education/Training Program; PCP Hospitalist; Visit Provider Student in an Organized Health Care Education/Training Program
DX: F20.0 Paranoid schizophrenia (principal); F17.210 Nicotine dependence, cigarettes, uncomplicated; Z91.148 Patient's other noncompliance with medication regimen for other reason; Z79.899 Other long term (current) drug therapy
CPT/HCPCS: 80048; 80307; 82077; 85025; 93005; 96372; 99285; J3486

== ENCOUNTER 2025-09-12 22:44 | Emergency (ER) | payer MEDICARE, SELFPAY ==
[2025-09-12 22:48] VITALS: BP 107/80; PULSE 86; RESP 16; TEMP 36.8; O2SAT 95; BMI 22.8
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
[2025-09-12 23:20] LABS: Hematocrit 35.1 % (37-47); Hemoglobin 12.0 g/dL (12.0-15.0); Immature Granulocytes Count 0.030 X10^3/uL (0.0-0.0); Mean Corp Hgb Conc 34.2 g/dL (32-36); Mean Corpuscular Volume 92.6 fL (81-99); Mean Platelet Vol. 9.4 fl (6.2-12.0); NRBC Flagged by Analyzer 0 % (0-5); Platelet Count 383 K/mm3 (150-450); RBC Distribution Width CV 13.2 % (11.6-14.6); RBC Distribution Width SD 44.8 fl (35.1-43.9); Red Blood Count 3.79 M/mm3 (4.2-5.4); White Blood Count 7.8 K/mm3 (4.4-11.0)
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
[2025-09-12] MEDS: Midazolam 5 MG/ML Syringe IM (23:44)
[2025-09-12 23:55] LABS: Alcohol, Blood (Medical)-Serum < 10.1 mg/dL (<=10.0)
[2025-09-12 23:56] LABS: Mucous, Urine 0 SEEN /hpf (<or=2+)
[2025-09-12 23:57] LABS: AST(SGOT) 23 U/L (<=31); Alanine Aminotransfer ALT/SGPT 21 U/L (<=34); Albumin, Serum 4.0 g/dL (3.4-4.8); Alkaline Phosphatase 85 U/L (35-104); Anion Gap 10 (5-15); BUN 10 mg/dL (4-19); BUN/Creat Ratio 14.7 RATIO (10-20); Calcium,Total 9.4 mg/dL (7.6-11.0); Carbon Dioxide 23.4 mmol/L (21.0-32.0); Chloride 102 mmol/L (98-108); Estimated Creatinine Clearance 63.88 ml/min (50-250); Globulin 2.7 g/dL (2.2-4.2); Glucose 106 mg/dL (70-99); Potassium 4.0 mmol/L (3.3-5.1)
[2025-09-12 23:59] LABS: Color, Urine Yellow (Yellow); Glucose, Dipstick Normal (Normal); Ketone-Dipstick Negative (Negative); Leukocyte Esterase-Dipstick Negative /ul (Negative); Nitrite-Dipstick Negative (Negative); Occult Blood-Urine Negative /ul (Negative); Protein-Dipstick 15 mg/dl (Negative); Specific Gravity, Urine 1.010 (1.002-1.030); Urine Bilirubin Dipstick Negative (Negative)
[2025-09-13 00:44] LABS: Barbiturate Urine NEGATIVE (< 200 ng/mL); Benzodiazepine Urine NEGATIVE (< 200 ng/mL); PCP Urine NEGATIVE (< 25 ng/mL); THC Urine NEGATIVE (< 50 ng/mL)
[2025-09-13 00:58] LABS: Red Blood Cells-Urine 0-5 SEEN /hpf (0-5); Squamous Epithelial Cells - UA 0-5 SEEN /hpf (5-10)
--- NOTE | 2025-09-13 04:27 | ED.RN ---
Multiple attempts made to get ahold of patients legal guardian. Phone number goes straight to voicemail, message left to return call to ED. Multiple attempts made to contact [facility] to update on patient coming back to them, unable to get anyone to answer their phone.
[2025-09-13 04:56] VITALS: BP 107/81; PULSE 77; RESP 16; TEMP 36.8; O2SAT 95
== END 2025-09-13 04:57 | disposition skilled nursing facility (03) ==
PROVIDERS: Emergency Provider Specialist/Technologist Athletic Trainer; PCP Hospitalist; Visit Provider Specialist/Technologist Athletic Trainer
DX: F25.0 Schizoaffective disorder, bipolar type (principal); F17.210 Nicotine dependence, cigarettes, uncomplicated; Z79.899 Other long term (current) drug therapy
CPT/HCPCS: 36415; 80053; 80307; 81001; 82077; 85025; 93005; 96372; 99285